=== PATIENT | female | born 2005 | race African-American/Black ===

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

== ENCOUNTER 2025-01-22 10:09 | Emergency (ER) | payer SELFPAY | END 2025-01-22 13:06 | disposition home or self-care (01) | LOC: CSHERS 10:09 | DX: O98.513 Other viral diseases complicating pregnancy, third trimester (principal); U07.1 COVID-19; Z87.891 Personal history of nicotine dependence; Z3A.30 30 weeks gestation of pregnancy | CPT/HCPCS: 87426; 99284 ==

== ENCOUNTER 2025-02-26 11:32 | Day surgery (SDC) | payer OTHER ==
[2025-02-26 12:11] VITALS: BMI 22.1
== END 2025-02-26 13:07 | disposition home or self-care (01) ==
LOC: CSHLD/OP 11:32
PROVIDERS: ATTEND Family Medicine
DX: O36.8330 Maternal care for abnormalities of the fetal heart rate or rhythm, third trimester, not applicable or unspecified (principal); O35.2XX0 Maternal care for (suspected) hereditary disease in fetus, not applicable or unspecified; O99.013 Anemia complicating pregnancy, third trimester; Z3A.35 35 weeks gestation of pregnancy
CPT/HCPCS: 76816; 76819; 93976; 99283

== ENCOUNTER 2025-03-24 19:00 | Inpatient (IN) | payer OTHER ==
[2025-03-24 20:40] VITALS: BMI 21.8
[2025-03-24] MEDS ORDERED: Acetaminophen 500 MG TAB PO PRN (21:09)
[2025-03-24] MEDS ORDERED: Diphenoxylate HCl/Atropine Tablet PO PRN ×2 (21:09)
[2025-03-24] MEDS ORDERED: hydrALAZINE 20 MG/ML VIAL SLOW IVP PRN (21:09)
[2025-03-24] MEDS ORDERED: Ondansetron PF 4 MG/2 ML Vial IVP PRN (21:09)
[2025-03-24] MEDS ORDERED: Tranexamic Acid 1,000 MG/10 ML VIAL IVP PRN (21:09)
[2025-03-24] MEDS ORDERED: Lidocaine 1% (PF) 30 ML VIAL SC PRN (21:09)
[2025-03-24] MEDS ORDERED: Carboprost 250 MCG/ML AMP IM PRN (21:09)
[2025-03-24] MEDS ORDERED: Methylergonovine 0.2 MG/ML VIAL IM PRN (21:09)
[2025-03-24] MEDS ORDERED: Oxytocin 30 units/NS 500 ML 500 ML IV SCH ×2 (21:15)
[2025-03-24 21:19] LABS: Hematocrit 30.0 % (34.9-44.5); Hemoglobin 9.2 g/dL (12.0-15.5); Mean Corpuscular Hemoglobin 21.4 pg (27.0-33.0); Mean Corpuscular Volume 69.9 fL (81.6-98.3); Platelet Count 292 10x3/uL (150-450); Red Blood Cell (RBC) Count 4.29 10x6/uL (3.90-5.03); White Blood Cell (WBC) Count 6.81 10x3/uL (3.5-10.5)
[2025-03-24 22:50] LABS: Syphilis Antibody Index 0.07 S/CO (<1.00 Non-Reactive)
[2025-03-24 22:53] LABS: Hep B Surf Ag - L&D Non-Reactive S/CO (NonReactive)
[2025-03-25] MEDS: fentaNYL/Ropivacaine Epidural 100 ML ONE (00:35)
[2025-03-25] MEDS ORDERED: Ondansetron PF 4 MG/2 ML Vial IVP PRN (00:40)
[2025-03-25] MEDS ORDERED: diphenhydrAMINE 50 MG/ML VIAL IVP PRN (00:40)
[2025-03-25] MEDS ORDERED: Communication Order-Pharmacy FS SCH (00:45)
[2025-03-25] MEDS ORDERED: fentaNYL 2 mcg/Ropivacaine 0.2% Epidural 100 ML CADD EPIDURAL SCH ×2 (00:45)
[2025-03-25] MEDS ORDERED: Lanolin Ointment 7 GM TUBE TOP PRN (04:16)
[2025-03-25] MEDS ORDERED: Methylergonovine 0.2 MG/ML VIAL IM PRN (04:16)
[2025-03-25] MEDS ORDERED: hydrALAZINE 20 MG/ML VIAL SLOW IVP PRN (04:16)
[2025-03-25] MEDS ORDERED: Preparation H Ointment 28 GM TUBE PR PRN (04:16)
[2025-03-25] MEDS ORDERED: diphenhydrAMINE 25 MG CAP PO PRN (04:16)
[2025-03-25] MEDS ORDERED: Milk Of Magnesia 30 ML UDCUP PO PRN (04:16)
[2025-03-25] MEDS ORDERED: Methylergonovine 0.2 MG TAB PO PRN (04:16)
[2025-03-25] MEDS ORDERED: Bisacodyl 10 MG SUPP PR PRN (04:16)
[2025-03-25] MEDS: Oxytocin 30 units/NS 500 ML 500 ML IV SCH (04:21)
[2025-03-25] MEDS ORDERED: Oxytocin 30 units/NS 500 ML 500 ML IV SCH (04:30)
[2025-03-25] MEDS: Ibuprofen 800 MG TAB PO PRN (05:01)
[2025-03-25] MEDS: Acetaminophen 325 MG TAB PO PRN (05:01)
[2025-03-25] MEDS: CEFAZOLIN 2 GM VIAL ONE (08:21)
[2025-03-25] MEDS: Boostrix 0.5 ML (Tdap) VIAL (>/=7 yrs of age) IM ONE (08:22)
[2025-03-25] MEDS: Ibuprofen 800 MG TAB PO SCH (08:23)
[2025-03-25] MEDS: Ferrous Sulfate 325 MG TAB PO SCH (09:22)
[2025-03-26 04:20] LABS: Hematocrit 26.5 % (34.9-44.5); Hemoglobin 8.1 g/dL (12.0-15.5)
[2025-03-27] MEDS: Benzocaine-Menthol 82.5 ML CAN TOP PRN (08:16)
[2025-03-27 08:23] VITALS: BP 106/60; TEMP 98
== END 2025-03-27 12:00 | disposition home or self-care (01) | DRG 806 ==
LOC: CSHLD 20:01 → CSHPP 03-25 06:08
PROVIDERS: ADMIT Family Medicine; ATTEND Family Medicine
PROC: 10E0XZZ Delivery of Products of Conception, External Approach (ICD-10-PCS; principal; 2025-03-25)
PROC: 0KQM0ZZ Repair Perineum Muscle, Open Approach (ICD-10-PCS; 2025-03-25)
PROC: 0UQMXZZ Repair Vulva, External Approach (ICD-10-PCS; 2025-03-25)
PROC: 4A1HXCZ Monitoring of Products of Conception, Cardiac Rate, External Approach (ICD-10-PCS; 2025-03-25)
DX: O36.5930 Maternal care for other known or suspected poor fetal growth, third trimester, not applicable or unspecified (principal); O98.82 Other maternal infectious and parasitic diseases complicating childbirth; Z37.0 Single live birth; O99.02 Anemia complicating childbirth; O70.0 First degree perineal laceration during delivery; O71.82 Other specified trauma to perineum and vulva; D56.3 Thalassemia minor; Z3A.39 39 weeks gestation of pregnancy
CPT/HCPCS: 36415; 51702; 85014; 85018; 85027; 86780; 86850; 86900; 86901; 87340; J2590; J3105; J7120

== ENCOUNTER 2025-03-28 15:29 | Emergency (ER) | payer OTHER ==
[~2025-03-28 15:29] MED LIST: Iopamidol 370 76% 100 ML VIAL ONE
[2025-03-28 16:30] LABS: #Basophils Less than 0.03 10x3/uL (0.0-0.2); #Eosinophils 0.09 10x3/uL (0.0-0.5); #Monocytes 0.59 10x3/uL (0.0-1.1); #Neutrophils 6.03 10x3/uL (1.5-8.4); %Basophils 0.1 % (0.0-2.0); %Eosinophils 1.1 % (0.0-6.0); %Lymphocytes 19.7 % (18.0-47.0); %Monocytes 7.0 % (0.0-10.0); %Neutrophils 71.9 % (40.0-75.0); Hematocrit 33.2 % (34.9-44.5); Hemoglobin 10.1 g/dL (12.0-15.5); Mean Corpuscular Hemoglobin 21.4 pg (27.0-33.0); Mean Corpuscular Volume 70.5 fL (81.6-98.3); Platelet Count 340 10x3/uL (150-450); Red Blood Cell (RBC) Count 4.71 10x6/uL (3.90-5.03); White Blood Cell (WBC) Count 8.39 10x3/uL (3.5-10.5)
[2025-03-28 16:42] LABS: ALT (SGPT) 26 U/L (Less than 34); AST (SGOT) 38 U/L (11-34); Albumin 2.8 g/dL (3.1-4.5); Alkaline Phosphatase 215 U/L (40-100); Anion Gap 13 mmol/L (10-20); BUN (Urea Nitrogen) 6 mg/dL (8.4-21.0); Bilirubin, Total 0.6 mg/dL (0.3-1.2); Calc. Creatinine Clearance 0 mL/min (70-130); Calcium 9.2 mg/dL (7.8-10.44); Carbon Dioxide 23 mmol/L (22-29); Chloride 104 mmol/L (98-107); Globulin 4.3 g/dL (2.4-3.5); Glucose 80 mg/dL (70-105); Potassium 3.8 mmol/L (3.5-5.1); Sodium 136 mmol/L (136-145)
[2025-03-28 16:49] LABS: Troponin I Less than 0.010 ng/mL (< 0.028)
[2025-03-28] MEDS ORDERED: Acetaminophen 500 MG TAB ONE (18:21)
== END 2025-03-28 18:54 | disposition home or self-care (01) ==
LOC: CSHERS 15:29
DX: O99.893 Other specified diseases and conditions complicating puerperium (principal); R07.9 Chest pain, unspecified; R06.00 Dyspnea, unspecified; O99.03 Anemia complicating the puerperium; D50.9 Iron deficiency anemia, unspecified; Z87.891 Personal history of nicotine dependence
CPT/HCPCS: 36415; 71045; 71275; 80053; 84484; 85025; 93005; Q9967